=== PATIENT | male | born 1990 | race Caucasian/White ===

== ENCOUNTER 2019-01-16 12:31 | Emergency (ER) | payer OTHER ==
--- NOTE | 2019-01-16 13:42 | ED ---
Back Pain - HPI Summary HPI Summary: 28-year-old male with significant past medical history presents to emergency department with a chief complaint of 10 out of 10 back pain which began this morning. He states his back pain is located in his lumbar region and radiates down his left leg feels like a numb pins and needles feeling. he denies any history of recent trauma, fevers, falls. 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 Patient endorses a history of back pain in the past. He denies saddle paresthesia, bilateral leg numbness, incontinence, trouble with urination. He denies fever, chest pain, abdominal pain, pain with urination, rash. 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 Negative: Swelling, Redness, Bruising, Fever, Weakness, Numbness, Abdominal Pain, Flank Pain, Bladder Incontinence, Bowel Incontinence - Allergies/Home Medications Allergies/Adverse Reactions: Allergies Allergy/AdvReac Type Severity Reaction Status Date / Time No Known Allergies Allergy Verified 01/16/19 13:47 PMH/Surg Hx/FS Hx/Imm Hx Infectious Disease History: No Infectious Disease History: Denies: Traveled Outside the [place] in Last 30 Days - Family History Family History: galstones - Social History Alcohol Use: Rare Substance Use Type: Reports: None Smoking Status (MU): Never Smoked Tobacco Review of Systems Constitutional: Negative Eyes: Negative ENT: Negative Cardiovascular: Negative Respiratory: Negative Gastrointestinal: Negative Genitourinary: Negative Positive: Myalgia, Decreased ROM Skin: Negative Positive: Paresthesia Psychological: Normal All Other Systems Reviewed And Are Negative: Yes Physical Exam Triage Information Reviewed: Yes Vital Signs On Initial Exam: Initial Vitals Temp Pulse Resp BP Pulse Ox 98.4 F 66 18 136/67 100 01/16/19 12:34 01/16/19 12:34 01/16/19 12:34 01/16/19 12:34 01/16/19 12:34 Vital Signs Reviewed: Yes Appearance: Positive: Well-Appearing, No Pain Distress, Well-Nourished Skin: Positive: Warm, Skin Color Reflects Adequate Perfusion Eyes: Positive: EOMI, AIDEE ENT: Positive: Hearing grossly normal Neck: Positive: Nontender Respiratory/Lung Sounds: Positive: Clear to Auscultation, Breath Sounds Present Cardiovascular: Positive: RRR, S1, S2 Abdomen Description: Positive: Nontender, Soft Bowel Sounds: Positive: Present Musculoskeletal: Positive: Other - There is no evidence of ecchymosis or erythema or edema to the back. Palpation reveals no midline tenderness of the cervical thoracic or lumbar spine. Palpation of the paraspinal muscles on the left side of the lumbar spine reveal moderate tenderness. Straight leg raise on the right side reveals lumbar radiculopathy. Patient has full range of motion of the lumbar spine although movement is painful. He has full sensation in the dermatomes of the lower extremities bilaterally. Gait is intact although antalgic. Neurological: Positive: Sensory/Motor Intact, Alert, Oriented to Person Place, Time, Speech Normal, Other - Mildly antalgic gait Psychiatric: Positive: Normal AVPU Assessment: Alert Procedures - Sedation Patient Received Moderate/Deep Sedation with Procedure: No Diagnostics - Vital Signs Vital Signs Temp Pulse Resp BP Pulse Ox 01/16/19 12:34 98.4 F 66 18 136/67 100 - Laboratory Lab Statement: Any lab studies that have been ordered have been reviewed, and results considered in the medical decision making process. Back Pain Course/Dx - Course Course Of Treatment: Patient was evaluated in the emergency department for back pain. The patient was seen and examined his vitals are stable and he is afebrile. There is no evidence of acute pathology such as cauda equina, epidural abscess, vertebral fracture. It appears he has mechanical back pain with radiculopathy down the left leg. He was given 60 mg of Toradol IM in the emergency department for pain which significantly decrease his symptoms, and he was able to ambulate well. He was sent home with a prescription for 800 mg of ibuprofen every 8 and 10 mg of Flexeril. He was told to follow-up with his primary care provider if his pain does not improve in 3-4 days. He was told to return to the emergency department immediately if he develops any new or worsening symptoms. Patient agrees with this plan. - Diagnoses Differential Diagnosis/HQI/PQRI: Positive: Cauda Equina Syndrome, Compressive Cord Syndrome, Epidural Abscess, Fracture, Herniated Disc, Strain, Sprain Provider Diagnoses: Back pain Discharge ED - Sign-Out/Discharge Documenting (check all that apply): Patient Departure - Discharge Plan Condition: Stable Disposition: HOME Prescriptions: Cyclobenzaprine TAB* [Flexeril 10 MG TAB*] 10 mg PO BID PRN #10 tab PRN Reason: Pain - Moderate Ibuprofen TAB* [Motrin TAB* 800 MG] 800 mg PO Q8H PRN #12 tab PRN Reason: Pain - Moderate Patient Education Materials: Back Pain (ED) Forms: *Work Release Referrals: No Primary Care Phys,NOPCP [Primary Care Provider] - [facility] [Outside] - 3 Days Additional Instructions: You were seen in the emergency department today for back pain caused by muscle strain. I sent a prescription for ibuprofen and Flexeril to your pharmacy. You 're to take 800 mg of ibuprofen every 8 hours as needed for pain. You're to take 10 mg of Flexeril up to twice a day as needed for pain. Try to stay as mobile as possible to prevent muscle stiffness in your low back. Apply heat for symptom relief 20 minutes on and 20 minutes off. Please return to the emergency department immediately if you develop any new or worsening symptoms. - Billing Disposition and Condition Condition: STABLE Disposition: Home
[2019-01-16] MEDS ORDERED: Ketorolac *IM* INJ* 60 MG/2 ML VIAL IM ONE (14:01)
[2019-01-16 15:11] VITALS: BP 124/68
== END 2019-01-16 14:45 | disposition home or self-care (01) ==
LOC: ED 12:31
DX: M54.9 Dorsalgia, unspecified (principal)
CPT/HCPCS: 96372; 99282; J1885

== ENCOUNTER 2019-05-18 11:47 | Emergency (ER) | payer OTHER ==
--- NOTE | 2019-05-18 11:56 | UC ---
Lower Extremity/Ankle HPI - HPI Summary HPI Summary: 28 y/o male presents to the urgent care c/o left ankle and lower leg pain s/p injury while playing basketball last night. Pt reports he has injured in the past, but never fractured. Pain is worse w/ walking, but he is walking w/ some limping. Pain is 8/10 radiating to the lateral side of the distal lower leg. Pt rolled his ankle to the lateral side. He applied ice and took a Flexeril PO he had at home last night. Nothing today and he declines medications for pain. He noticed this morning some swelling on the lateral side of the ankle and LLL. Pt denies any numbness or tingling sensation over the left lower extremity, SOB , calf pain, abdominal pain, N/V/D. - History of Current Complaint Chief Complaint: UCLowerExtremity Stated Complaint: ANKLE PAIN Time Seen by Provider: 05/18/19 11:53 Hx Obtained From: Patient Onset/Duration: Sudden Onset, Lasting Days - 1 day, Still Present Severity Initially: Moderate Severity Currently: Moderate Pain Intensity: 8 Pain Scale Used: 0-10 Numeric Aggravating Factor(s): Ambulation Alleviating Factor(s): Rest, Elevation, Ice, OTC Meds - took flexeril last night , nothiung today and declines medication Able to Bear Weight: Yes - Risk Factors Gout Risk Factors: Negative DVT Risk Factors: Negative Septic Arthritis Risk Factor: Negative - Allergies/Home Medications Allergies/Adverse Reactions: Allergies Allergy/AdvReac Type Severity Reaction Status Date / Time No Known Allergies Allergy Verified 01/16/19 13:47 Home Medications: Home Medications Ibuprofen TAB* [Motrin TAB* 600 MG] 600 mg PO Q6H PRN #30 tab 05/18/19 [Rx] PMH/Surg Hx/FS Hx/Imm Hx Previously Healthy: Yes - Pt denies PMHX - Surgical History Surgical History: None - Family History Family History: galstones - Social History Occupation: Employed Full-time Lives: With Family Alcohol Use: Rare Substance Use Type: None Smoking Status (MU): Never Smoked Tobacco Review of Systems All Other Systems Reviewed And Are Negative: Yes Constitutional: Positive: Negative Skin: Positive: Negative Eyes: Positive: Negative ENT: Positive: Negative Respiratory: Positive: Negative Cardiovascular: Positive: Negative Gastrointestinal: Positive: Negative Genitourinary: Positive: Negative Motor: Positive: Negative Neurovascular: Positive: Negative Musculoskeletal: Positive: Decreased ROM - left ankle, Other: - left lwoer leg and left ankle pain s/p injury while playing basketball last night Neurological/Mental Status: Positive: Negative Psychological: Positive: Negative Is Patient Immunocompromised?: No Physical Exam - Summary Physical Exam Summary: Vital Signs Reviewed: Yes General: well developed, well nourished male, sitting in the examining table w/ o any apparent distress Eyes: Positive: Conjunctiva Clear - PERRLA, EOMI, ENT: Positive: Normal ENT inspection, Hearing grossly normal, Pharynx normal, TMs normal Neck: Positive: Supple, Nontender, No Lymphadenopathy Respiratory: Positive: Chest non-tender, Lungs clear, Normal breath sounds, No respiratory distress Cardiovascular: Positive: RRR, No Murmur, Pulses Normal, Brisk Capillary Refill Abdomen Description: Positive: Nontender, No Organomegaly, Soft. Negative: CVA Tenderness (R), CVA Tenderness (L) Bowel Sounds: Positive: Present Musculoskeletal: - Ankle: Pt is able to bear weight and ambulate w/ limping. The L ankle is without obvious asymmetry or deformity when compared to the R ankle. Decreased ROM due to pain. Moderate swelling at the lateral malleolus and lateral aspect of the left lower leg, with tenderness to palpation. No ecchymosis or bruising observed. Also Tenderness to palpation over the medial malleolus , moderate swelling on both malleoulus observed. Talar tilt test is negative for ligament laxity to valgus or varus stress. Negative anterior drawer. Peroneal nerve is intact with strong eversion and plantar flexion. Positive sensation over the Rt foot and Rt ankle, positive pulses, capillary refill intact Neurological Exam: Normal Psychological Exam: Normal Skin: warm and dry Triage Information Reviewed: Yes Lower Extremity Course/Dx - Course Course Of Treatment: 28 y/o male presents to the urgent care c/o left ankle and lower leg pain s/p injury while playing basketball last night. Pt reports he has injured in the past, but never fractured. Pain is worse w/ walking, but he is walking w/ some limping. Pain is 8/10 radiating to the lateral side of the distal lower leg. Pt rolled his ankle to the lateral side. He applied ice and took a Flexeril PO he had at home last night. Nothing today and he declines medications for pain. He noticed this morning some swelling on the lateral side of the ankle and LLL. Pt denies any numbness or tingling sensation over the left lower extremity, SOB , calf pain, abdominal pain, N/V/D. Hx obtained. LF ankle and LLL X-ray ordered , Impression: no acute osseous injury observed as per radiologist. Pt most likely with a LF ankle Sprain. Pt immobilized with gel ankle splint and Vitor bandage, given crutches to avoid weight bearing, PT Rx Ibuprofen PO to decrease swelling and pain. Pt advised RICE, take Ibuprofen PO for pain and to f/u with PCP or Sports Medicine orthopedic in 1 week if not improvement of symptoms for further treatment.Pt's BP is elevated today and advised to decrease salt in diet, monitor BP and f/u with PCP if BP continues to be elevated for further management. Pt understood and agreed and left the clinic ambulating w/ the help of crutches. - Differential Dx/Diagnosis Differential Diagnosis/HQI/PQRI: Contusion, Dislocation, Fracture (Closed), Fracture (Open), Sprain, Strain, Tendonitis Provider Diagnosis: Elevated BP without diagnosis of hypertension, Left ankle sprain Discharge ED - Sign-Out/Discharge Documenting (check all that apply): Patient Departure - D/C home All imaging exams completed and their final reports reviewed: Yes - Discharge Plan Condition: Stable Disposition: HOME Prescriptions: Ibuprofen TAB* [Motrin TAB* 600 MG] 600 mg PO Q6H PRN #30 tab PRN Reason: moderate pain Patient Education Materials: Ankle Sprain (ED) Forms: *Work Release Referrals: [facility] [Outside] - 1 Week Sports Medicine [facility] [Provider Group] - 1 Week Additional Instructions: 1-Please take Ibuprofen PO q6-8hrs prn after meals as directed to alleviate pain and swelling. 2-Please apply ice, keep your ankle immobilized with the Gel splint and Vitor bandage. Avoid weight bearing using the crutches. Elevate your ankle 3- Please f/u with Orthopedic from Sports medicine or your PCP in 1 week is not improvement of symptoms for further evaluation and treatment. 4- Your BP is elevated today and advised to decrease salt in diet, monitor BP and f/u with PCP for further management. - Billing Disposition and Condition Condition: STABLE Disposition: Home
[2019-05-18 12:02] VITALS: BP 141/83
== END 2019-05-18 13:00 | disposition home or self-care (01) ==
LOC: UCEAST 11:47
DX: S93.402A Sprain of unspecified ligament of left ankle, initial encounter (principal); X50.1XXA Overexertion from prolonged static or awkward postures, initial encounter; Y93.67 Activity, basketball; Y92.9 Unspecified place or not applicable; R03.0 Elevated blood-pressure reading, without diagnosis of hypertension
CPT/HCPCS: 99213; G0463